=== PATIENT | female | born 1950 | race African-American/Black ===

== ENCOUNTER → 2016-08-12 | Outpatient (CLI) | payer OTHER, MEDICARE ==
[~2016-08-12] MED LIST: ALBUTEROL0.09 MG/A1 IH; ALBUTEROL0.83 MG/ML IH; CIPRO 500MG TA500 MG PO; CLEOCIN HCL300 MG PO; DRAMAMINE25 MG PO; FLAGYL 250250 MG/TAB PO; FLAGYL500 MG PO; K-TAB10 PO; LASIX 20MG TABL20 MG PO; LEVAQUIN 5500 MG/TA1 PO; LEVAQUIN 750MG750 MG PO; NEURONTIN300 MG/CAP PO; NORCO 325 MG-51 TAB PO; PHENERGAN W/CO120 ML PO; PREDNISONE20 MG PO; VICODIN 5/5001 UDTAB PO; ZITHROMAX 250M250 MG PO
== END ==
LOC: MC.RAD 08:50
DX: Z12.31 Encounter for screening mammogram for malignant neoplasm of breast (principal)

== ENCOUNTER → 2017-02-20 | Outpatient (CLI) | payer OTHER, MEDICARE | LOC: COL.RAD 11:51 | DX: M25.461 Effusion, right knee (principal) ==

== ENCOUNTER 2017-04-08 14:45 | Emergency (ER) | payer OTHER, MEDICARE ==
[~2017-04-08] VITALS: Ht 165.1 cm; Wt 91.8 kg
[2017-04-08 14:49] VITALS: BP 173/78; TEMP 98.3
[2017-04-08] MEDS ORDERED: FLEXERIL 1010 MG/TAB PO (14:54)
[2017-04-08] MEDS ORDERED: ASPIRIN 81M81 MG/TA2 PO (14:54)
[2017-04-08] MEDS ORDERED: ZESTRIL 10MG10 MG PO (16:18)
[2017-04-08] MEDS ORDERED: NORCO 325 MG-51 TAB PO (16:40)
[2017-04-08 16:53] VITALS: PULSE 60
== END 2017-04-08 16:55 | disposition home or self-care (01) ==
LOC: COL.ER 14:45
DX: M25.561 Pain in right knee (principal); I10 Essential (primary) hypertension

== ENCOUNTER → 2017-07-02 | Outpatient (CLI) | payer OTHER, MEDICARE ==
[~2017-07-02] MED LIST changes: +ASPIRIN 81M81 MG/TA2 PO; +FLEXERIL 1010 MG/TAB PO; +ZESTRIL 10MG10 MG PO
== END ==
LOC: COL.VAS 14:00
DX: R60.0 Localized edema (principal)

== ENCOUNTER → 2017-08-26 | Outpatient (CLI) | payer MEDICARE | LOC: COL.PUL 07:42 | DX: J44.9 Chronic obstructive pulmonary disease, unspecified (principal); Z87.891 Personal history of nicotine dependence ==

== ENCOUNTER → 2017-11-02 | Outpatient (CLI) | payer MEDICARE | LOC: MC.RAD 10:38 | DX: Z12.31 Encounter for screening mammogram for malignant neoplasm of breast (principal) ==

== ENCOUNTER → 2017-11-17 | Outpatient (CLI) | payer MEDICARE | LOC: COL.RAD 07:55 | DX: Z85.048 Personal history of other malignant neoplasm of rectum, rectosigmoid junction, and anus (principal); Z98.890 Other specified postprocedural states | CPT/HCPCS: Q9967 ==

== ENCOUNTER → 2018-04-01 | Outpatient (CLI) | payer MEDICARE | LOC: COL.VAS 09:24 | DX: Z01.810 Encounter for preprocedural cardiovascular examination (principal); Z86.79 Personal history of other diseases of the circulatory system ==

== ENCOUNTER → 2019-01-25 | Outpatient (CLI) | payer MEDICARE | LOC: COL.RAD 07:33 | DX: C20 Malignant neoplasm of rectum (principal); J44.9 Chronic obstructive pulmonary disease, unspecified; K44.9 Diaphragmatic hernia without obstruction or gangrene; M79.89 Other specified soft tissue disorders; Z98.890 Other specified postprocedural states | CPT/HCPCS: Q9967 ==

== ENCOUNTER → 2022-10-01 | Outpatient (CLI) | payer MEDICARE | LOC: MC.RAD 12:49 | DX: Z12.31 Encounter for screening mammogram for malignant neoplasm of breast (principal) ==

== ENCOUNTER → 2022-11-10 | Outpatient (CLI) | payer MEDICARE | LOC: COL.PUL 13:10 | DX: J44.9 Chronic obstructive pulmonary disease, unspecified (principal) ==